=== PATIENT | female | born 1995 | race Two or more races ===

== ENCOUNTER 2021-05-10 20:25 | Emergency (ER) | payer SELFPAY ==
[~2021-05-10] VITALS: Ht 170.2 cm; Wt 93.5 kg
--- NOTE | 2021-05-10 20:39 | NUR ---
C/O SORE THROAT, PAIN WITH SWALLOWING AND FEELING FEVERISH.
[2021-05-10] MEDS ORDERED: DEXAMETHASONE 4 MG/ML, 1ML PO ONE (21:00)
[2021-05-10] MEDS ORDERED: SODIUM CHLORIDE 0.9% 1,000ML IVBOLUS ONE (21:00)
[2021-05-10] MEDS ORDERED: DEXAMETHASONE 4 MG/ML, 1ML ONE (21:04)
[2021-05-10 21:43] LABS: ALBUMIN 3.3 g/dL (3.4-5.0); ANION GAP 4 mmol/L (5-15); BASOPHILS % (AUTO) 0 % (0-1); CALCIUM 8.6 mg/dL (8.5-10.1); CHLORIDE 105 mmol/L (98-107); CREATININE 0.69 mg/dL (0.55-1.02); EOSINOPHILS % (AUTO) 1 % (1-7); LYMPHOCYTES % (AUTO) 22 % (22-44); MEAN CORPUSCULAR HEMOGLOBIN 28.7 pg (27.0-34.8); MEAN PLATELET VOLUME 8.3 fL (7.4-10.4); MONOCYTES % (AUTO) 9 % (2-9); NEUTROPHILS % (AUTO) 68 % (42-75); PLATELET COUNT 251 x10^3/uL (130-400); RED BLOOD COUNT 4.02 x10^6/uL (3.82-5.3); RED CELL DISTRIBUTION WIDTH 12.9 % (9.6-15.2)
--- NOTE | 2021-05-10 23:09 | NUR ---
REPORT TO DION MENDES.
--- NOTE | 2021-05-10 23:20 | NUR ---
REPORT RECEIVED, POC DISCUSSED, CARE ASSUMED. CT RESULTS PENDING.
[2021-05-11] MEDS ORDERED: LIDOCAINE-MPF 1%, 5ML INFIL ONE
[2021-05-11] MEDS ORDERED: BENZOCAINE 20% SPRAY 0.5ML TP ONE
[2021-05-11] MEDS ORDERED: LIDOCAINE-MPF 1%, 5ML ONE (00:05)
[2021-05-11] MEDS ORDERED: BENZOCAINE 20% SPRAY 0.5ML ONE (00:05)
--- NOTE | 2021-05-11 00:28 | NUR ---
pt resting quietly NAD. VS updated.
[2021-05-11] MEDS ORDERED: AMPICILLIN/SULBACTAM 3 GM in SODIUM CHLORIDE 0.9% 100 ML IV ONE (00:30)
--- NOTE | 2021-05-11 01:51 | NUR ---
PT DC'D HOME WITH RX X 2 AND UNDERSTANDING OF INSTRUCTIONS. PT ESCORTED TO DC DESK, GAIT STEADY.
[2021-05-11 01:52] VITALS: BP 115/70
[2021-05-11] MEDS ORDERED: OMNIPAQUE 350 MG/ML, 100ML BOTTLE ONE (04:22)
== END 2021-05-11 01:54 | disposition home or self-care (01) ==
LOC: ED 21:00
DX: J36 Peritonsillar abscess (principal); R11.0 Nausea
CPT/HCPCS: 36415; 42999; 70491; 80048; 82040; 85025; 96361; 96365; 99284; J0295; J1100; J7030; Q9967